=== PATIENT | male | born 1975 | race Hispanic/Latino ===

== ENCOUNTER 2018-04-21 08:14 | Inpatient (IN) | payer OTHER ==
[2018-04-21 09:37] LABS: Absolute Monocytes 0.3 K/uL (0.1-1.3); Absolute Neutrophil 8.7 K/uL (1.8-8.0); Basophils % 0.2 % (0-1.3); Eosinophils % 0.7 % (0-4.4); Hematocrit 44.8 % (39.6-49.0); Lymphocytes % 10.1 % (15.3-44.8); MPV 11.3 fL (7.6-11.3); RBC Red Blood Cell Count 5.38 M/uL (4.33-5.43)
[2018-04-21 10:00] LABS: ALT/SGPT 36 U/L (12-78); AST/SGOT 20 U/L (15-37); Albumin 4.4 g/dL (3.4-5.0); Alkaline Phosphatase 97 U/L (45-117); BUN Blood Urea Nitrogen 16 mg/dL (7-18); Bicarbonate 24 mmol/L (21-32); Bilirubin Direct 0.1 mg/dL (0-0.2); Bilirubin Total 0.9 mg/dL (0.2-1.0); Glucose Level 268 mg/dL (74-106); Lipase 1640 U/L (73-393); Potassium 3.8 mmol/L (3.5-5.1); Sodium Level 138 mmol/L (136-145)
[2018-04-21 10:16] LABS: Platelet Estimate ADEQ
[2018-04-21 10:17] LABS: Blood Morphology Comment NOT SEEN (NOT SEEN)
--- NOTE | 2018-04-21 10:28 | RAD REPORT ---
EXAM DESCRIPTION: CTAbdomen Pelvis W Contrast - 04/21/2018 10:12 am CLINICAL HISTORY: Abdominal pain. abdominal pain, iv only COMPARISON: No comparisons TECHNIQUE: Biphasic CT imaging of the abdomen and pelvis was performed with 100 ml non-ionic IV cont rast. All CT scans are performed using dose optimization technique as appropriate and may include automated exposure control or mA/KV adjustment according to patient size. FINDINGS: The lung bases are clear. Diffuse fatty liver is seen. Mild peripancreatic fluid is present likely representing pancreatitis. T he spleen is mildly enlarged in size. Adrenal glands and right kidney normal. Left kidney demonstrate s a 14 mm exophytic cyst, benign appearance. No bowel obstruction, free air, free fluid or abscess. Sigmoid diverticulosis without diverticulitis. The appendix is normal. No evidence of significant lymphadenopathy. No suspicious bony findings. IMPRESSION: Mild peripancreatic fluid is noted likely representing acute pancreatitis. Correlation w ith amylase and lipase levels is suggested. Diffuse fatty liver.
[2018-04-21 10:42] LABS: Urine Blood NEGATIVE (NEG); Urine Glucose 2+ (NEG); Urine Protein 1+ (NEG)
[2018-04-21] MEDS ORDERED: ONDANSETRON 4 MG/2 ML VIAL ONE (10:54)
[2018-04-21] MEDS ORDERED: MORPHINE 4 MG/ML SYR ONE ×2 (10:54→12:24)
[2018-04-21] MEDS ORDERED: NA CHLORIDE 0.9% 1,000 ML ONE (11:43)
--- NOTE | 2018-04-21 11:50 | RAD REPORT ---
EXAM DESCRIPTION: RAD - Chest Single View - 04/21/2018 11:42 am CLINICAL HISTORY: CHEST PAIN Chest pain. COMPARISON: No comparisons FINDINGS: Portable technique limits examination quality. The lungs are underinflated resulting in vascular crowding. The heart is normal in size. No displaced fractures. IMPRESSION: Underinflated lungs.
--- NOTE | 2018-04-21 11:54 | RAD REPORT ---
EXAM DESCRIPTION: US - Abdomen Exam Limited - 04/21/2018 11:47 am CLINICAL HISTORY: abdominal pain COMPARISON: No comparisons FINDINGS: The gallbladder demonstrates no gallstones. No pericholecystic fluid or gallbladder wall t hickening. The common bile duct is normal measuring 5 mm. The liver demonstrates no findings of intrahepatic biliary dilatation. IMPRESSION: Unremarkable examination.
--- NOTE | 2018-04-21 12:09 | ER ---
Nurse's Notes [facility] Name: Saroj Siddiqi Age: 43 yrs Sex: Male : 1975 Arrival Date: 04/21/2018 Time: 08:17 Bed 18 Private MD: Diagnosis: Acute pancreatitis Presentation: 04/21 08:29 Presenting complaint: Patient states: upper abd pain since yesterday, denies vomiting iw or diarrhea. Transition of care: patient was not received from another setting of care. Onset of symptoms was April 20, 2018. Risk Assessment: Do you want to hurt yourself or someone else? Patient reports no desire to harm self or others. Initial Sepsis Screen: Does the patient meet any 2 criteria? No. Patient's initial sepsis screen is negative. Does the patient have a suspected source of infection? No. Patient's initial sepsis screen is negative. Care prior to arrival: None. 08:29 Method Of Arrival: Ambulatory iw 08:29 Acuity: ELIZABETH 3 iw Historical: - Allergies: 08:33 No Known Allergies; iw - Home Meds: 08:33 pioglitazone 30 mg oral tab 1 tab once daily [Active]; simvastatin 80 mg Oral tab daily iw [Active]; amlodipine 5 mg tab 1 tab once daily [Active]; - PMHx: 08:33 Hypertension; Hyperlipidemia; iw - PSHx: 08:33 None; iw - Immunization history:: Adult Immunizations not up to date. - Social history:: Smoking status: Patient uses tobacco products, denies chronic smoking, but will smoke occasionally. - Ebola Screening: : Patient negative for fever greater than or equal to 101.5 degrees Fahrenheit, and additional compatible Ebola Virus Disease symptoms Patient denies exposure to infectious person Patient denies travel to an Ebola-affected area in the 21 days before illness onset No symptoms or risks identified at this time. Screenin:41 Abuse screen: Denies threats or abuse. Denies injuries from another. Nutritional iw screening: No deficits noted. Tuberculosis screening: No symptoms or risk factors identified. Fall Risk IV access (20 points). Assessment: 08:54 General: Appears in no apparent distress. uncomfortable, Behavior is calm, cooperative. jl7 Pain: Complains of pain in epigastric area Pain radiates to right upper quadrant and left upper quadrant Pain currently is 10 out of 10 on a pain scale. Is continuous. Neuro: Level of Consciousness is awake, alert, obeys commands, Oriented to person, place, time, situation. Cardiovascular: Patient's skin is warm and dry. Respiratory: Airway is patent Respiratory effort is even, unlabored, Respiratory pattern is regular, symmetrical. GI: Bowel sounds present X 4 quads. Abd is soft Abdomen is tender to palpation in epigastric area. : No signs and/or symptoms were reported regarding the genitourinary system. EENT: No signs and/or symptoms were reported regarding the EENT system. Derm: Skin is pink, warm \T\ dry. Musculoskeletal: No signs and/or symptoms reported regarding the musculoskeletal system. 10:00 Reassessment: Patient appears in no apparent distress at this time. Patient and/or jl7 family updated on plan of care and expected duration. Pain level reassessed. Patient is alert, oriented x 3, equal unlabored respirations, skin warm/dry/pink. 11:00 Reassessment: Patient appears in no apparent distress at this time. Patient and/or jl7 family updated on plan of care and expected duration. Pain level reassessed. Patient is alert, oriented x 3, equal unlabored respirations, skin warm/dry/pink. 11:43 Reassessment: Aidan at bedside to update pt on POC, pt will be admitted to hospital, iw diagnosis is pancreatitis, pt states he had a recent ETOH binge over the weekend, denies daily drinking, pt requesting more pain medicine and something to drink, pt is to be NPO at this time. 13:00 Reassessment: Patient and/or family updated on plan of care and expected duration. Pain jl7 level reassessed. pt laying in bed with eyes closed, respirations even and unlabored, no signs of distress noted at this time. 14:00 Reassessment: Patient appears in no apparent distress at this time. Patient and/or jl7 family updated on plan of care and expected duration. Pain level reassessed. Patient is alert, oriented x 3, equal unlabored respirations, skin warm/dry/pink. 15:00 Reassessment: Patient and/or family updated on plan of care and expected duration. Pain jl7 level reassessed. Patient is alert, oriented x 3, equal unlabored respirations, skin warm/dry/pink. Vital Signs: 08:33 BP 138 / 104; Pulse 96; Resp 16 S; Temp 98.3; Pulse Ox 99% on R/A; Weight 92.53 kg; iw Height 5 ft. 7 in. (170.18 cm); Pain 10/10; 10:45 BP 157 / 108; Pulse 99; Resp 16 S; Pulse Ox 100% on R/A; jl7 12:00 BP 131 / 96; Pulse 93; Resp 16 S; Pulse Ox 98% on R/A; jl7 14:00 BP 136 / 97; Pulse 96; Resp 16 S; Pulse Ox 97% on R/A; jl7 08:33 Body Mass Index 31.95 (92.53 kg, 170.18 cm) iw ED Course: 08:17 Patient arrived in ED. rg4 08:31 Aidan Bailey PA is PHCP. jmm 08:31 Julián Jeronimo MD is Attending Physician. jmm 08:32 Triage completed. iw 08:33 Arm band placed on. iw 08:36 Adal Amaral, PARAG is Primary Nurse. jl7 08:45 Patient has correct armband on for positive identification. Placed in gown. Bed in low jl7 position. Call light in reach. Side rails up X 1. 08:45 Pulse ox on. NIBP on. Warm blanket given. jl7 09:03 Initial lab(s) drawn, by me, sent to lab. Inserted saline lock: 22 gauge in right jb1 antecubital area, using aseptic technique. Blood collected. 09:13 Urine collected: clean catch specimen, cloudy, saad colored. jb1 10:12 CT completed. Patient tolerated procedure well. Patient moved to CT via wheelchair. Patient moved back from CT. 10:15 CT Abd/Pelvis - W/Contrast In Process Unspecified. EDMS 11:40 Inserted saline lock: 20 gauge in left antecubital area, using aseptic technique. Blood iw collected. 11:41 X-ray completed. Portable x-ray completed in exam room. Patient tolerated procedure sw well. 11:41 First set of blood cultures drawn. iw 11:43 Chest Single View XRAY In Process Unspecified. EDMS 11:48 US Abdomen Limited In Process Unspecified. EDMS 12:07 Ángel Lowe DO is Hospitalizing Provider. jmm 15:28 No provider procedures requiring assistance completed. Patient admitted, IV remains in jl7 place. intact, No redness/swelling at site. Administered Medications: 10:45 Drug: Zofran 4 mg Route: IVP; Site: right antecubital; jl7 11:00 Follow up: Response: No adverse reaction jl7 10:47 Drug: morphine 4 mg Route: IVP; Site: right antecubital; jl7 11:00 Follow up: Response: No adverse reaction; Pain is decreased jl7 12:15 Drug: NS 0.9% 1000 ml Route: IV; Rate: 1 bolus; Site: right antecubital; jl7 13:15 Follow up: IV Status: Completed infusion jl7 12:17 Drug: morphine 4 mg Route: IVP; Site: right antecubital; jl7 12:30 Follow up: Response: No adverse reaction; Pain is decreased [facility] Outcome: 12:07 Decision to Hospitalize by Provider. johanna 15:28 Admitted to ICU accompanied by nurse, accompanied by tech, family with patient, via [facility] stretcher, room 1, on monitor, with chart, Report called to PARAG Vasquez 15:28 Condition: stable 15:28 Discharge instructions given to patient, family, Instructed on the need for admit, Demonstrated understanding of instructions. 15:30 Patient left the ED. [facility] Signatures: Dispatcher [employer] EDMS Marc Jaeger1 Aidan Bailey PA PA jmm Jones, Susan sj Williams, Irene, RN Gianna Coles Rubi rg4 Leal, Jahala, RN RN jl7
--- NOTE | 2018-04-21 12:09 | EDPHYS ---
Physician Documentation [facility] Name: Saroj Siddiqi Age: 43 yrs Sex: Male : 1975 Arrival Date: 04/21/2018 Time: 08:17 Bed 18 Private MD: ED Physician Julián Jeronimo HPI: 04/21 08:42 This 43 yrs old Male presents to ER via Ambulatory with complaints of jmm Abdominal Pain. 08:42 The patient presents with abdominal pain in the epigastric area. Onset: The jmm symptoms/episode began/occurred gradually, 3 day(s) ago. The symptoms radiate to Associated signs and symptoms: Pertinent positives: nausea. This is a 43 year old male with a history of hlp, htn that presents to the ED with complaints of abdominal pain beginning approx 3 days ago. Patient states he drank heavily this past Thursday. Patient denies chronic alcohol use. . Historical: - Allergies: 08:33 No Known Allergies; iw - Home Meds: 08:33 pioglitazone 30 mg oral tab 1 tab once daily [Active]; simvastatin 80 mg Oral tab daily iw [Active]; amlodipine 5 mg tab 1 tab once daily [Active]; - PMHx: 08:33 Hypertension; Hyperlipidemia; iw - PSHx: 08:33 None; iw - Immunization history:: Adult Immunizations not up to date. - Social history:: Smoking status: Patient uses tobacco products, denies chronic smoking, but will smoke occasionally. - Ebola Screening: : Patient negative for fever greater than or equal to 101.5 degrees Fahrenheit, and additional compatible Ebola Virus Disease symptoms Patient denies exposure to infectious person Patient denies travel to an Ebola-affected area in the 21 days before illness onset No symptoms or risks identified at this time. ROS: 08:42 Constitutional: Negative for fever, chills, and weight loss, Cardiovascular: Negative jmm for chest pain, palpitations, and edema, Respiratory: Negative for shortness of breath, cough, wheezing, and pleuritic chest pain. 08:42 Abdomen/GI: Positive for abdominal pain, nausea. 08:42 Back: Positive for radiated pain. 08:42 All other systems are negative. Exam: 08:42 Constitutional: This is a well developed, well nourished patient who is awake, alert, jmm and in no acute distress. Head/Face: atraumatic. Eyes: EOMI, no conjunctival erythema appreciated ENT: Moist Mucus Membranes Neck: Trachea midline, Supple Chest/axilla: Normal chest wall appearance and motion. Cardiovascular: Regular rate and rhythm. No edema appreciated Respiratory: Normal respirations, no respiratory distress appreciated 08:42 Abdomen/GI: Inspection: abdomen appears normal, Bowel sounds: normal, Palpation: moderate abdominal tenderness, in the epigastric area and left upper quadrant. 08:42 Back: ROM is normal. 08:42 Musculoskeletal/extremity: ROM: intact in all extremities. 08:42 Skin: Appearance: Color: normal in color. 08:42 Neuro: Orientation: is normal, Mentation: is normal, Memory: is normal. 08:42 Psych: Behavior/mood is pleasant, cooperative. Vital Signs: 08:33 BP 138 / 104; Pulse 96; Resp 16 S; Temp 98.3; Pulse Ox 99% on R/A; Weight 92.53 kg; iw Height 5 ft. 7 in. (170.18 cm); Pain 10/10; 10:45 BP 157 / 108; Pulse 99; Resp 16 S; Pulse Ox 100% on R/A; jl7 12:00 BP 131 / 96; Pulse 93; Resp 16 S; Pulse Ox 98% on R/A; jl7 14:00 BP 136 / 97; Pulse 96; Resp 16 S; Pulse Ox 97% on R/A; jl7 08:33 Body Mass Index 31.95 (92.53 kg, 170.18 cm) iw MDM: 08:42 Patient medically screened. [facility] 12:06 Data reviewed: vital signs, nurses notes. Counseling: I had a detailed discussion with [facility] the patient and/or guardian regarding: the historical points, exam findings, and any diagnostic results supporting the discharge/admit diagnosis, lab results, radiology results, the need for further work-up and treatment in the hospital. ED course: I discussed the patient with Dr. Lowe whom accepted admission. 04/21 08:33 Order name: Basic Metabolic Panel; Complete Time: 10:41 [facility] 04/21 08:33 Order name: CBC with Diff; Complete Time: 10:41 [facility] 04/21 08:33 Order name: Creatinine for Radiology; Complete Time: 10:41 [facility] 04/21 08:33 Order name: Hepatic Function; Complete Time: 10:41 [facility] 04/21 08:33 Order name: Lipase; Complete Time: 10:41 [facility] 04/21 09:10 Order name: Urine Dipstick--Ancillary (enter results) 04/21 08:43 Order name: CT Abd/Pelvis - W/Contrast; Complete Time: 10:41 [facility] 04/21 10:17 Order name: Manual Differential; Complete Time: 10:41 [facility] 04/21 10:53 Order name: US Abdomen Limited; Complete Time: 11:58 [facility] 04/21 11:15 Order name: Procalcitonin; Complete Time: 13:07 [facility] 04/21 11:15 Order name: Lactate; Complete Time: 13:07 [facility] 04/21 11:15 Order name: Blood Culture Adult (2) [facility] 04/21 11:22 Order name: Triglycerides Level; Complete Time: 13:07 [facility] 04/21 12:47 Order name: LDL, Direct; Complete Time: 13:07 [facility] 04/21 08:33 Order name: IV Saline Lock; Complete Time: 08:53 [facility] 04/21 08:33 Order name: Labs collected and sent; Complete Time: 08:53 [facility] 04/21 08:33 Order name: Urine Dipstick-Ancillary (obtain specimen); Complete Time: 09:14 [facility] 04/21 11:11 Order name: Chest Single View XRAY; Complete Time: 11:58 [facility] Administered Medications: 10:45 Drug: Zofran 4 mg Route: IVP; Site: right antecubital; jl7 11:00 Follow up: Response: No adverse reaction jl7 10:47 Drug: morphine 4 mg Route: IVP; Site: right antecubital; jl7 11:00 Follow up: Response: No adverse reaction; Pain is decreased jl7 12:15 Drug: NS 0.9% 1000 ml Route: IV; Rate: 1 bolus; Site: right antecubital; jl7 13:15 Follow up: IV Status: Completed infusion jl7 12:17 Drug: morphine 4 mg Route: IVP; Site: right antecubital; jl7 12:30 Follow up: Response: No adverse reaction; Pain is decreased jl7 Disposition: 18:51 Co-signature as Attending Physician, Julián Jeronimo MD Available for consultation at ps1 all times. . Disposition: 04/21/18 12:07 Hospitalization ordered by Ángel Lowe for Observation. Preliminary diagnosis is Acute pancreatitis. - Bed requested for Intensive Care Unit. - Status is Observation. jl7 - Condition is Stable. - Problem is new. - Symptoms are unchanged. UTI on Admission? No Signatures: Dispatcher [employer] EDMS Ly Good bd Aidan Bailey PA PA jmm Williams, Irene, RN RN iw Adal Amaral RN RN jl7 Julián Jeronimo MD MD ps1 Corrections: (The following items were deleted from the chart) 13:56 12:07 Hospitalization Ordered by Ángel Lowe DO for Observation. Preliminary bd diagnosis is Acute pancreatitis. Bed requested for Telemetry/MedSurg (observation). Status is Observation. Condition is Stable. Problem is new. Symptoms are unchanged. UTI on Admission? No. johanna 15:30 13:56 04/21/2018 12:07 Hospitalization Ordered by Ángel Lowe DO for Observation. jl7 Preliminary diagnosis is Acute pancreatitis. Bed requested for Intensive Care Unit. Status is Observation. Condition is Stable. Problem is new. Symptoms are unchanged. UTI on Admission? No. bd
[2018-04-21 12:56] LABS: LDL, Direct 80 mg/dL (100-129)
--- NOTE | 2018-04-21 14:19 | P.HP ---
Certification for Inpatient Patient admitted to: Inpatient With expected LOS: >2 Midnights Patient will require the following post-hospital care: None Practitioner: I am a practitioner with admitting privileges, knowledge of patient current condition, hospital course, and medical plan of care. Services: Services provided to patient in accordance with Admission requirements found in Title 42 Section 412.3 of the Code of Federal Regulations Patient History Date of Service: 04/21/18 Primary Care Provider: ALYSON Murphy Reason for admission: Abdominal pain History of Present Illness: 43-year-old male presented to the emergency room with abdominal pain. Patient reported epigastric abdominal pain since yesterday. He denied any significant nausea or vomiting. No diarrhea noted. Patient was not able to sleep last night due to pain. He was able to eat but the pain persisted. He denied any fever, chills. Pain was 10/10. Some radiation of pain is noted. Patient came to the ER for further evaluation. In the ER patient evaluated. Lipase elevated at 1600. Triglyceride level also elevated above 2400. CT scan revealed pancreatitis and fatty liver. white count 10.2, hemoglobin 15. Blood sugar 268. Pro calcitonin and lactic acid within normal range. Chest x-ray unremarkable. Abdominal ultrasound shows no biliary obstruction. Patient admitted for treatment. When I saw the patient the ER, he did not appear septic. Pain mi a controlled with medication. Patient with history of hypertension, diabetes and hyperlipidemia. Patient takes Actos, Zocor and amlodipine. Home medications list reviewed: Yes - Past Medical/Surgical History Diabetic: Yes -: Diabetes mellitus type 2 -: Hypertension -: Hyperlipidemia -: Obesity -: Tobacco abuse -: Alcohol use -: Fatty liver Past Surgical History: Patient denies surgical history Psychosocial/ Personal History: Patient is . He has 3 children. He works as a fabricator. - Family History Mother -: Diabetes - Social History Smoking Status: Light Tobacco smoker (1-9 cigarettes/day) Counseled patient to stop smoking for: less than 10 minutes Smoking therapy provided: Yes Patient receptive to therapy: Yes Alcohol use: Yes CD- Drugs: No Caffeine use: Yes Place of Residence: Home Review of Systems General: As per HPI Eyes: Unremarkable ENT: Unremarkable Respiratory: Unremarkable Cardiovascular: Unremarkable Gastrointestinal: Abdominal Pain, As per HPI Genitourinary: Unremarkable Musculoskeletal: Unremarkable Integumentary: Unremarkable Neurological: Unremarkable Lymphatics: Unremarkable Physical Examination - Physical Exam General: Alert, In no apparent distress, Oriented x3, Cooperative HEENT: Atraumatic, Normocephalic, PERRLA, Other (Dry mucous membranes) Neck: Supple, No Thyromegaly Respiratory: Clear to auscultation bilaterally, Normal air movement Cardiovascular: Normal pulses, Regular rate/rhythm Gastrointestinal: Hypoactive, Non-distended, No masses, No rebound, No guarding , Tenderness (Epigastric tenderness noted) Musculoskeletal: No contractures, No erythema, No tenderness, No warmth Integumentary: No tenderness/swelling, No erythema, No warmth, No cyanosis Neurological: Normal speech, Normal strength at 5/5 x4 extr, Normal tone, Normal affect - Studies Laboratory Data (last 24 hrs) 04/21/18 11:30: Triglycerides 2461 H, LDL Cholesterol Direct 80 L 04/21/18 09:25: Creatinine 0.68 04/21/18 08:50: WBC 10.2, Hgb 15.7, Hct 44.8, Plt Count 124 L 04/21/18 08:50: Sodium 138, Potassium 3.8, BUN 16, Creatinine 0.69, Glucose 268 H, Total Bilirubin 0.9, AST 20, ALT 36, Alkaline Phosphatase 97, Lipase 1640 H Assessment and Plan - Plan Impression: Epigastric abdominal pain secondary to acute pancreatitis secondary to hypertriglyceridemia Diabetes mellitus type 2 Hypertension Tobacco abuse Alcohol use Fatty liver Obesity Plan: Epigastric abdominal pain secondary to acute pancreatitis secondary to hypertriglyceridemia: Patient will be admitted to ICU. Will continue with IV fluids. Will keep the patient NPO. Insulin drip to be started to help reduce triglycerides. Once triglycerides have significantly improved and without any abdominal pain, then will advance diet. Will continue to monitor the patient closely. Fluids to be adjusted per blood sugar. Diabetes mellitus type 2: Will check A1c. Continue insulin drip. Will adjust IV fluids per blood sugar. If blood sugar less than 200 will change to D5 normal saline. If blood sugar above 200, Will change to normal saline. Hypertension: Will provide IV medication as needed Tobacco abuse: Tobacco cessation addressed in detail. Patient may require nicotine patch. Alcohol use: Alcohol cessation addressed in detail. Fatty liver: CT scan revealed fatty liver. Will provide education. Obesity: Will calculate BMI. Will address lifestyle modification education. Discharge Plan: Home Plan to discharge in: Greater than 2 days - Advance Directives Does patient have a Living Will: No Does patient have a Durable POA for Healthcare: No - Code Status/Comfort Care Code Status Assessed: Yes (Patient full code.) Time Spent Managing Pts Care (In Minutes): 55
[2018-04-21] MEDS ORDERED: ACETAMINOPHEN 500 MG TAB PO PRN (15:07)
[2018-04-21] MEDS ORDERED: GLUCAGON 1 MG/VIAL IM PRN (15:07)
[2018-04-21] MEDS ORDERED: MORPHINE 2 MG/ML SYR IV PRN (15:07)
[2018-04-21] MEDS ORDERED: D50W 25 GM/50 ML SYRINGE IV PRN (15:07)
[2018-04-21] MEDS ORDERED: HYDRALAZINE HCL 20 MG/ML VIAL IV PRN (15:07)
[2018-04-21] MEDS ORDERED: ACETAMINOPHEN 650MG/RECT SUPP PR PRN (15:07)
[2018-04-21] MEDS ORDERED: ONDANSETRON 4 MG/2 ML VIAL IV PRN (15:07)
[2018-04-21] MEDS: ENOXAPARIN 40 MG/0.4 ML SQ SCH (15:39)
[2018-04-21] MEDS: NA CHLORIDE 0.9% 1,000 ML IV SCH ×2 (15:40→23:07)
[2018-04-21] MEDS: INSULIN -REGULAR HUMAN 100 UNIT in NA CHLORIDE 0.9% 100 ML IV SCH (15:51)
[2018-04-21] MEDS ORDERED: HYDROMORPHONE HCL 0.5 MG/0.5 ML INJ IV PRN (16:02)
[2018-04-21] MEDS ORDERED: HYDROMORPHONE HCL 1 MG/ML INJ IV PRN (16:03)
[2018-04-21 16:14] LABS: Thyroid Stimulating Hormone 0.794 uIU/mL (0.360-3.740)
[2018-04-21] MEDS ORDERED: PNEUMOCOCCAL VACCINE 0.5 ML IMVAC ONE (17:00)
[2018-04-21] MEDS ORDERED: INFLUENZA VACCINE (for 3y+) 0.5 ML DOSE IMVAC ONE (17:00)
[2018-04-21] MEDS: D5 0.9 NS 1,000 ML IV SCH (18:24)
[2018-04-21] MEDS: FAMOTIDINE 20 MG/2 ML VIAL IV SCH (21:13)
[2018-04-22] MEDS: D5 0.9 NS 1,000 ML IV SCH ×3 (03:30→19:00)
[2018-04-22 05:17] LABS: Absolute Monocytes 0.4 K/uL (0.1-1.3); Absolute Neutrophil 7.1 K/uL (1.8-8.0); Basophils % 0.5 % (0-1.3); Eosinophils % 0.9 % (0-4.4); Hematocrit 39.2 % (39.6-49.0); Lymphocytes % 11.9 % (15.3-44.8); MPV 9.5 fL (7.6-11.3); RBC Red Blood Cell Count 4.72 M/uL (4.33-5.43)
[2018-04-22 05:38] LABS: HDL Cholesterol 30 mg/dL (40-60); LDL Cholesterol, Calculated ND (<130)
[2018-04-22 05:50] LABS: LDL, Direct 53 mg/dL (100-129)
[2018-04-22] MEDS: NA CHLORIDE 0.9% 1,000 ML IV SCH ×3 (07:07→23:07)
[2018-04-22 07:23] LABS: ALT/SGPT 28 U/L (12-78); AST/SGOT 14 U/L (15-37); Albumin 3.4 g/dL (3.4-5.0); Alkaline Phosphatase 72 U/L (45-117); BUN Blood Urea Nitrogen 14 mg/dL (7-18); Bicarbonate 26 mmol/L (21-32); Bilirubin Total 0.8 mg/dL (0.2-1.0); Glucose Level 162 mg/dL (74-106); Potassium 3.5 mmol/L (3.5-5.1); Protein, Total 6.9 g/dL (6.4-8.2)
[2018-04-22 07:25] LABS: Sodium Level 139 mmol/L (136-145)
[2018-04-22] MEDS ORDERED: KCL 20 MEQ/100 mL IVPB 20 MEQ/100 ML BAG IV SCH ×2 (09:00)
[2018-04-22] MEDS: ENOXAPARIN 40 MG/0.4 ML SQ SCH (09:12)
[2018-04-22] MEDS: FAMOTIDINE 20 MG/2 ML VIAL IV SCH ×2 (09:12→20:48)
--- NOTE | 2018-04-22 11:31 | P.PN ---
Subjective Date of Service: 04/22/18 Primary Care Provider: ALYSON Murphy Chief Complaint: Abdominal pain Subjective: Other (Patient improved. Epigastric pain significantly improved. No significant nausea or vomiting.) Physical Examination - Vital Signs Temperature: 98.1 F Blood Pressure: 120/74 Pulse: 97 Respirations: 20 Pulse Ox (%): 97 - Physical Exam General: Alert, In no apparent distress, Oriented x3, Cooperative HEENT: Atraumatic Neck: Supple Respiratory: Clear to auscultation bilaterally, Normal air movement Cardiovascular: Normal pulses, Regular rate/rhythm Gastrointestinal: Normal bowel sounds, Soft and benign, Non-distended, No masses , No rebound, No guarding, Tenderness (Less pain to the epigastric region) Musculoskeletal: No erythema, No tenderness, No warmth Integumentary: No tenderness/swelling, No erythema, No warmth, No cyanosis Neurological: Normal speech, Normal strength at 5/5 x4 extr, Normal tone, Normal affect - Studies Laboratory Data (last 24 hrs) 04/21/18 11:30: Triglycerides 2461 H, LDL Cholesterol Direct 80 L Medications List Reviewed: Yes Assessment & Plan Discharge Plan: Home Plan to discharge in: 72 Hours Physician Review Additional Text: Impression: Epigastric abdominal pain secondary to acute pancreatitis secondary to hypertriglyceridemia Diabetes mellitus type 2 Hypertension Tobacco abuse Alcohol use Fatty liver Obesity, BMI 31 Plan: Epigastric abdominal pain secondary to acute pancreatitis secondary to hypertriglyceridemia: Patient continues to improve. Patient remains on insulin drip and IV fluids. Triglycerides now all down to 1062 from 2461. Will continue monitor triglyceride level. Once below 500 then can transition to oral medication. Pain improved. Will recheck triglyceride level again later today and tomorrow. Anticipate improvement over the next 24 hr. Diabetes mellitus type 2, uncontrolled: A1c 10.5. Patient will likely require basal insulin at discharge. Blood sugar needs to be better controlled as an outpatient. Hypertension: Will provide IV medication as needed Tobacco abuse: Will continue to address Tobacco cessation. Patient may require nicotine patch. Alcohol use: Will continue to address Alcohol cessation. Fatty liver: CT scan revealed fatty liver. Will provide education. Obesity, BMI 31: Will address lifestyle modification education. Time Spent Managing Pts Care (In Minutes): 55
[2018-04-22] MEDS: INSULIN -REGULAR HUMAN 100 UNIT in NA CHLORIDE 0.9% 100 ML IV SCH (12:17)
[2018-04-22 13:35] LABS: BUN Blood Urea Nitrogen 14 mg/dL (7-18); Bicarbonate 22 mmol/L (21-32); Glucose Level 219 mg/dL (74-106); Potassium 3.5 mmol/L (3.5-5.1); Sodium Level 138 mmol/L (136-145)
[2018-04-22 13:50] LABS: LDL, Direct 72 mg/dL (100-129)
[2018-04-22 18:38] LABS: LDL, Direct 80 mg/dL (100-129)
[2018-04-23] MEDS: NA CHLORIDE 0.9% 1,000 ML IV SCH ×2 (01:20→07:07)
[2018-04-23 05:15] LABS: Absolute Monocytes 0.5 K/uL (0.1-1.3); Absolute Neutrophil 5.1 K/uL (1.8-8.0); Basophils % 0.2 % (0-1.3); Hematocrit 38.7 % (39.6-49.0); MPV 9.2 fL (7.6-11.3); Monocytes % 7.1 % (3.3-12.3); RBC Red Blood Cell Count 4.63 M/uL (4.33-5.43)
[2018-04-23 05:31] LABS: ALT/SGPT 26 U/L (12-78); AST/SGOT 12 U/L (15-37); Albumin 2.8 g/dL (3.4-5.0); Alkaline Phosphatase 77 U/L (45-117); BUN Blood Urea Nitrogen 9 mg/dL (7-18); Bicarbonate 23 mmol/L (21-32); Bilirubin Total 1.2 mg/dL (0.2-1.0); Glucose Level 156 mg/dL (74-106); HDL Cholesterol 29 mg/dL (40-60); LDL Cholesterol, Calculated ND (<130); Magnesium 1.9 mg/dL (1.8-2.4); Protein, Total 6.5 g/dL (6.4-8.2); Sodium Level 137 mmol/L (136-145)
[2018-04-23 05:48] LABS: LDL, Direct 90 mg/dL (100-129)
[2018-04-23] MEDS ORDERED: KCL 20 MEQ/100 mL IVPB 20 MEQ/100 ML BAG IV SCH (07:00)
[2018-04-23] MEDS ORDERED: POTASSIUM CL SA 10 MEQ TAB PO ONE ×2 (07:03→20:00)
[2018-04-23] MEDS ORDERED: TRAMADOL HCL 50 MG TAB PO PRN (08:27)
[2018-04-23] MEDS ORDERED: GEMFIBROZIL 600 MG TAB PO SCH (09:00)
[2018-04-23] MEDS ORDERED: DOCOSAHEXANOIC AC/EPA 1000 MG PO SCH (09:00)
[2018-04-23] MEDS ORDERED: FAMOTIDINE 20 MG TAB PO SCH (09:00)
[2018-04-23] MEDS: ENOXAPARIN 40 MG/0.4 ML SQ SCH (09:54)
--- NOTE | 2018-04-23 15:57 | P.PN ---
Subjective Date of Service: 04/23/18 Primary Care Provider: ALYSON Murphy Chief Complaint: Abdominal pain Subjective: Improving Physical Examination - Vital Signs Temperature: 99.0 F Blood Pressure: 142/91 Pulse: 99 Respirations: 16 Pulse Ox (%): 97 - Physical Exam General: Alert, In no apparent distress, Oriented x3, Cooperative HEENT: Atraumatic Neck: Supple Respiratory: Clear to auscultation bilaterally, Normal air movement Cardiovascular: Normal pulses, Regular rate/rhythm Gastrointestinal: Normal bowel sounds, Soft and benign, Non-distended, No masses , No rebound, No guarding, Tenderness (Minimal pain to the epigastric region) Musculoskeletal: No erythema, No tenderness, No warmth Integumentary: No tenderness/swelling, No erythema, No warmth, No cyanosis Neurological: Normal speech, Normal strength at 5/5 x4 extr, Normal tone, Normal affect - Studies Medications List Reviewed: Yes Assessment & Plan Discharge Plan: Home Plan to discharge in: 24 Hours Physician Review Additional Text: Impression: Epigastric abdominal pain secondary to acute pancreatitis secondary to hypertriglyceridemia Diabetes mellitus type 2 Hypertension Tobacco abuse Alcohol use Fatty liver Obesity, BMI 31 Plan: Epigastric abdominal pain secondary to acute pancreatitis secondary to hypertriglyceridemia: Patient continues to improve. Lopid and Fish oil started. Continue with IV fluids. Will advance diet as tolerated. Anticipate discharge in the next 24 hr. Diabetes mellitus type 2, uncontrolled: A1c 10.5. Will start basal insulin. Hypertension: Will start home medication Tobacco abuse: Will continue to address Tobacco cessation. Patient may require nicotine patch. Alcohol use: Will continue to address Alcohol cessation. Fatty liver: CT scan revealed fatty liver. Will provide education. Obesity, BMI 31: Will address lifestyle modification education. Time Spent Managing Pts Care (In Minutes): 55
--- NOTE | 2018-04-23 18:04 | P.DS ---
Admission Date: 04/21/18 Discharge Date: 04/23/18 Primary Care Provider: ALYSON Murphy Disposition: ROUTINE DISCHARGE Discharge Condition: GOOD Reason for Admission: Abdominal pain Consultations: None Procedures: CT scan: COMPARISON: No comparisons TECHNIQUE: Biphasic CT imaging of the abdomen and pelvis was performed with 100 ml non-ionic IV contrast. All CT scans are performed using dose optimization technique as appropriate and may include automated exposure control or mA/KV adjustment according to patient size. FINDINGS: The lung bases are clear. Diffuse fatty liver is seen. Mild peripancreatic fluid is present likely representing pancreatitis. The spleen is mildly enlarged in size. Adrenal glands and right kidney normal. Left kidney demonstrates a 14 mm exophytic cyst , benign appearance. No bowel obstruction, free air, free fluid or abscess. Sigmoid diverticulosis without diverticulitis. The appendix is normal. No evidence of significant lymphadenopathy. No suspicious bony findings. IMPRESSION: Mild peripancreatic fluid is noted likely representing acute pancreatitis. Correlation with amylase and lipase levels is suggested. Diffuse fatty liver. ABUS: COMPARISON: No comparisons FINDINGS: The gallbladder demonstrates no gallstones. No pericholecystic fluid or gallbladder wall thickening. The common bile duct is normal measuring 5 mm. The liver demonstrates no findings of intrahepatic biliary dilatation. IMPRESSION: Unremarkable examination. Medical Problem List: Epigastric abdominal pain secondary to acute pancreatitis secondary to hypertriglyceridemia Diabetes mellitus type 2 Hypertension Tobacco abuse Alcohol use Fatty liver Obesity, BMI 31 Brief History of Present Illness: 43-year-old male presented to the emergency room with abdominal pain. Patient reported epigastric abdominal pain since yesterday. He denied any significant nausea or vomiting. No diarrhea noted. Patient was not able to sleep last night due to pain. He was able to eat but the pain persisted. He denied any fever, chills. Pain was 10/10. Some radiation of pain is noted. Patient came to the ER for further evaluation. In the ER patient evaluated. Lipase elevated at 1600. Triglyceride level also elevated above 2400. CT scan revealed pancreatitis and fatty liver. white count 10.2, hemoglobin 15. Blood sugar 268. Pro calcitonin and lactic acid within normal range. Chest x-ray unremarkable. Abdominal ultrasound shows no biliary obstruction. Patient admitted for treatment. When I saw the patient the ER, he did not appear septic. Pain mi a controlled with medication. Patient with history of hypertension, diabetes and hyperlipidemia. Patient takes Actos, Zocor and amlodipine. Hospital Course: Patient presented with epigastric abdominal pain secondary to acute pancreatitis secondary to hypertriglyceridemia. Patient responded well to therapy which included IV insulin. Medication adjusted during his stay. Zocor discontinued. At discharge patient without any significant pain much improved. At discharge he will continue with Lopid 600 mg 1 pill twice daily and fish oil 1000 mg pills twice daily. Recommend to continue with a low-fat diet. Patient with type 2 diabetes. A1c 10.5. Medication adjusted. Patient will no longer take Actos. Indication includes metformin. At discharge patient will continue with metformin 1000 mg 1 pill twice daily. Recommend for blood sugar to be less than 140 fasting and less than 200 after meals. Further adjustment in medication will be required if still elevated. Patient plans to establish care with a local physician to help with this. He will continue with a diabetic low-fat diet. Patient with hypertension. Medications adjusted. Norvasc discontinued. New medication includes lisinopril. Patient will continue with lisinopril 10 mg daily. Recommend to maintain blood pressures less 150/80. Further adjustment can be done by his PCP. Patient with alcohol and tobacco abuse. Cessation education addressed in detail for both. Patient with fatty liver. Recommend lifestyle modification education. This can be monitored as an outpatient. Vital Signs/Physical Exam: Temp Pulse Resp BP Pulse Ox 99.4 F 101 H 16 118/79 97 04/23/18 16:00 04/23/18 16:00 04/23/18 16:00 04/23/18 16:00 04/23/18 16:00 General: Alert, In no apparent distress, Oriented x3, Cooperative HEENT: Atraumatic Neck: Supple Respiratory: Clear to auscultation bilaterally, Normal air movement Cardiovascular: Normal pulses, Regular rate/rhythm Gastrointestinal: Normal bowel sounds, Soft and benign, Non-distended, No tenderness, No masses, No rebound, No guarding Musculoskeletal: No erythema, No tenderness, No warmth Integumentary: No tenderness/swelling, No erythema, No warmth, No cyanosis Neurological: Normal speech, Normal strength at 5/5 x4 extr, Normal tone, Normal affect Laboratory Data at Discharge: WBC 6.8 K/uL (4.3-10.9) D 04/23/18 04:30 Hgb 13.4 g/dL (13.6-17.9) L 04/23/18 04:30 Hct 38.7 % (39.6-49.0) L 04/23/18 04:30 Plt Count 98 K/uL (152-406) L 04/23/18 04:30 Sodium 137 mmol/L (136-145) 04/23/18 04:30 Potassium 3.6 mmol/L (3.5-5.1) 04/23/18 15:50 BUN 9 mg/dL (7-18) 04/23/18 04:30 Creatinine 0.48 mg/dL (0.55-1.3) L 04/23/18 04:30 Glucose 156 mg/dL (74-106) H 04/23/18 04:30 Magnesium 1.9 mg/dL (1.8-2.4) 04/23/18 04:30 Total Bilirubin 1.2 mg/dL (0.2-1.0) H 04/23/18 04:30 AST 12 U/L (15-37) L 04/23/18 04:30 ALT 26 U/L (12-78) 04/23/18 04:30 Alkaline Phosphatase 77 U/L (45-117) 04/23/18 04:30 Triglycerides 435 mg/dL (<150) H 04/23/18 04:30 Cholesterol 225 mg/dL (<200) H 04/23/18 04:30 LDL Cholesterol Direct 90 mg/dL (100-129) L 04/23/18 04:30 HDL Cholesterol 29 mg/dL (40-60) L 04/23/18 04:30 Cholesterol/HDL Ratio 7.76 04/23/18 04:30 Lipase 319 U/L (73-393) 04/23/18 08:50 Home Medications: Docosahexanoic AC/Epa [Fish Oil 1,000 MG*] 2,000 mg PO BID #120 cap 04/23/18 Gemfibrozil [Lopid*] 600 mg PO BID #60 tab 04/23/18 Lisinopril [Prinivil*] 10 mg PO BEDTIME #30 tab 04/23/18 Metformin HCl 1,000 mg PO BID #60 tablet 04/23/18 New Medications: Docosahexanoic AC/Epa [Fish Oil 1,000 MG*] 2,000 mg PO BID #120 cap Gemfibrozil [Lopid*] 600 mg PO BID #60 tab Lisinopril [Prinivil*] 10 mg PO BEDTIME #30 tab Metformin HCl 1,000 mg PO BID #60 tablet Patient Discharge Instructions: 1. Patient patient will need to establish care with a PCP to follow up this hospitalization. 2. Patient presented with epigastric abdominal pain secondary to acute pancreatitis secondary to hypertriglyceridemia. Patient responded well to therapy which included IV insulin. Medication adjusted during his stay. Zocor discontinued. At discharge patient without any significant pain much improved. At discharge he will continue with Lopid 600 mg 1 pill twice daily and fish oil 1000 mg pills twice daily. Recommend to continue with a low-fat diet. 3. Patient with type 2 diabetes. A1c 10.5. Medication adjusted. Patient will no longer take Actos. Indication includes metformin. At discharge patient will continue with metformin 1000 mg 1 pill twice daily. Recommend for blood sugar to be less than 140 fasting and less than 200 after meals. Further adjustment in medication will be required if still elevated. Patient plans to establish care with a local physician to help with this. He will continue with a diabetic low- fat diet. 4. Patient with hypertension. Medications adjusted. Norvasc discontinued. New medication includes lisinopril. Patient will continue with lisinopril 10 mg daily. Recommend to maintain blood pressures less 150/80. Further adjustment can be done by his PCP. 5. Patient with alcohol and tobacco abuse. Cessation education addressed in detail for both. 6. Patient with fatty liver. Recommend lifestyle modification education. This can be monitored as an outpatient. Diet: ADA Activity: Ad joycelyn Time spent managing pt's care (in minutes): 55
[2018-04-23] MEDS ORDERED: LISINOPRIL 10 MG TAB PO SCH (21:00)
[2018-04-24] MEDS ORDERED: INSULIN GLARGINE 100 UNITS/ML SQ SCH (08:00)
== END 2018-04-23 20:26 | disposition home or self-care (01) | DRG 440 ==
LOC: ER 08:14 → ERHOLD 13:28 → 3RD-ICU 15:09 → 2ND 04-23 07:20
PROVIDERS: ADMIT Family Medicine; ATTEND Family Medicine
DX: K85.80 Other acute pancreatitis without necrosis or infection (principal); E78.1 Pure hyperglyceridemia; E11.9 Type 2 diabetes mellitus without complications; I10 Essential (primary) hypertension; F17.210 Nicotine dependence, cigarettes, uncomplicated; K76.0 Fatty (change of) liver, not elsewhere classified; E66.9 Obesity, unspecified; Z68.31 Body mass index [BMI] 31.0-31.9, adult; F10.10 Alcohol abuse, uncomplicated
CPT/HCPCS: 36415; 71045; 74177; 76705; 80048; 80053; 80061; 80076; 81003; 82962; 83036; 83605; 83690; 83735; 84132; 84145; 84439; 84443; 84478; 85025; 87040; 90670; 96361; 96374; 96375; 99285; G0008; G0009; J1170; J1650; J2270; J2405; J7030; Q2035; Q9967

== ENCOUNTER 2024-01-22 22:35 | Observation (INO) | payer OTHER, SELFPAY ==
[2024-01-22 23:29] LABS: Absolute Eosinophils 0.2 K/uL (0-0.5); Absolute Lymphocytes (CBC) 1.9 K/uL (0.7-4.9); Absolute Monocytes 0.4 K/uL (0.1-1.3); Absolute Neutrophil 4.2 K/uL (1.8-8.0); Basophils % 0.6 % (0-1.3); Hematocrit 47.1 % (39.6-49.0); Lymphocytes % 27.4 % (15.3-44.8); MCH 30.7 pg (27.0-35.0); MCHC 33.9 g/dL (32.0-36.0); MCV 90.5 fL (80-100); MPV 10.2 fL (7.6-11.3); Monocytes % 6.6 % (3.3-12.3); Neutrophils % 62.4 % (41.7-73.7); Nucleated Red Blood Cells % 0.1 % (0-0); Platelets 137 thou/uL (152-406); RBC Red Blood Cell Count 5.21 M/uL (4.33-5.43); Red Cell Distribution Width 13.6 % (12.1-15.2)
[2024-01-22 23:31] LABS: PT Prothrombin Time 11.1 SECONDS (9.4-12.5); PTT, Activated Partial Thromb 34.2 SECONDS (24.3-36.9); Protime INR 0.99
--- NOTE | 2024-01-23 00:26 | RAD REPORT ---
EXAM DESCRIPTION: CT HEAD ANGIOGRAPHY WITH IV CONTRAST 01/22/2024 11:36 PM [employer] OPERATOR CLINICAL HISTORY: 48 years, Male, Stroke alert. COMPARISON: CT Head 01/22/2024. PROCEDURE: Multiple transaxial tomograms of the upper neck through the brain were performed after administration of large bolus of IV contrast for complete opacification of the intracranial vessels. Subsequent 3-D multiplanar reformats, volume rendering technique and maximum intensity projection chetan ges were generated in independent workstation. An individualized dose optimization technique, Automated Exposure Control, was utilized for the perfo rmed procedure. CAROTID STENOSIS REFERENCE USING NASCET CRITERIA: % ICA stenosis = (1 - narrowest ICA diameter/diamet er of distal cervical ICA) x 100. Mild - <50% stenosis. Moderate - 50-69% stenosis. Severe - 70-94% stenosis. Near occlusion - 95-99% stenosis. Occluded - 100% stenosis. FINDINGS: Distal internal carotid arteries: There is no significant areas of stenosis and/or occlusion. Milagros l traveling into the carotid foramen. Intracranial circulation: Intracranial portions of the internal carotid arteries the cavernous sinus portions demonstrates the presence of minimal peripheral atheromatous plaque with no evidence for significant tendinosis and/or aneurysm. The anterior cerebral arteries, middle cerebral arteries and its branches demonstrate normal opacification with no evidence for significant stenosis aneurysm and/or occlusion. There is normal venous drainage with no evidence for sinus vein thrombosis. Vertebrobasilar system: The vertebrobasilar system and PIN CLEANER demonstrate to be normal with no evidence for aneurysm and/or occlusion. The brain parenchyma demonstrate normal aj-white matter differentiation with no evidence for mass e ffect and/or midline shift. There is no evidence for abnormal right normal enhancement. The skull base and intracranial structures demonstrate to be within normal limits. IMPRESSION: No evidence for significant stenosis and/or occlusion of the intracranial vasculature. Unremarkable CT scan of the brain with contrast. Electronically signed by: Marc Weber MD 01/23/2024 12:19 AM [employer] OPERATOR Due to temporary technical issues with the PACS/[employer] reporting system, reports are being tess d by the in-house radiologist without review as a courtesy to ensure prompt reporting the interpreting radiologist is fully responsible for the content of the report. Transcribed Date/Time: 01/23/2024 12:26 AM
--- NOTE | 2024-01-23 00:27 | RAD REPORT ---
Two PROCEDURE: Ct Stroke Brain Wo Cont CLINICAL HISTORY: STROKE ALERT TECHNIQUE: Contiguous axial CT images obtained through the brain without IV contrast. Coronal and sagittal refor matted images were provided. This exam was performed according to our departmental dose-optimization program, which includes autom ated exposure control, adjustment of the mA and/or kV according to patient size and/or use of iterative reconstruction technique. COMPARISON: None available for comparison FINDINGS: Brain: No focal mass effect. Ann-white matter differentiation is within normal limits. No hemorrhage . Ventricles: No ventriculomegaly or midline shift. Extra-axial spaces: No extra-axial collection or hemorrhage. Paranasal sinuses and mastoid air cells: Well-aerated Bones: Unremarkable Soft tissues: Unremarkable IMPRESSION: No acute intracranial or extra-axial abnormality. Electronically signed by: Byron Brandon MD 01/22/2024 11:18 PM [facility] Due to temporary technical issues with the PACS/[employer] reporting system, reports are being tess d by the in-house radiologist without review as a courtesy to ensure prompt reporting the interpreting radiologist is fully responsible for the content of the report. Transcribed Date/Time: 01/23/2024 12:27 AM
--- NOTE | 2024-01-23 00:27 | RAD REPORT ---
CLINICAL HISTORY: Stroke alert. COMPARISON: None. TECHNIQUE: CT NECK ANGIOGRAPHY WITH IV CONTRAST on 01/22/2024 10:48 PM TOURS CAPTAIN This exam was performed according to our departmental dose-optimization program, which includes autom ated exposure control, adjustment of the mA and/or kV according to patient size and/or use of iterative reconstruction technique. MIP reconstructions were generated. Stenoses are calculated by NASCET criteria. FINDINGS: The visualized aortic arch and origins of the great vessels unremarkable. The common carotid arteries are patent and symmetric bilaterally. No hemodynamically significant stenosis is observed at the common carotid bifurcations or origins of the internal carotid arteries bilaterally. Vertebral arteries are unremarkable without evidence of pseudoaneurysm, hemodynamically significant s tenosis, or dissection. IMPRESSION: Unremarkable CT angiogram of the neck for age without dissection or hemodynamically significant steno sis. CAROTID STENOSIS REFERENCE USING NASCET CRITERIA: % ICA stenosis = (1 - narrowest ICA diameter/diameter of distal cervical ICA) x 100. Mild - <50% stenosis. Moderate - 50-69% stenosis. Severe - 70-94% stenosis. Near occlusion - 95-99% stenosis. Occluded - 100% stenosis. Electronically signed by: Flo Puckett MD 01/22/2024 11:50 PM [facility] Due to temporary technical issues with the PACS/[employer] reporting system, reports are being tess d by the in-house radiologist without review as a courtesy to ensure prompt reporting the interpreting radiologist is fully responsible for the content of the report. Transcribed Date/Time: 01/23/2024 12:27 AM
[2024-01-23 00:28] LABS: ALT/SGPT 43 U/L (16-61); AST/SGOT 26 U/L (15-37); Albumin 3.7 g/dL (3.4-5.0); Alkaline Phosphatase 74 U/L (45-117); Anion Gap 13.7 mEq/L (5.0-15.0); BUN Blood Urea Nitrogen 18 mg/dL (7-18); Bicarbonate 21 mEq/L (21-32); Bilirubin Direct < 0.2 mg/dL (0-0.2); Bilirubin Indirect, Calculated 0.3 mg/dL (0.2-0.8); Bilirubin Total 0.5 mg/dL (0.2-1.0); Globulin 3.7 g/dL (2.3-3.5); Glomerular Filtration Rate 114 ml/min (=/>90); Glucose Level 166 mg/dL (74-106); Potassium 3.7 mEq/L (3.5-5.1); Protein, Total 7.4 g/dL (6.4-8.2); Sodium Level 135 mEq/L (136-145); Troponin High Sensitivity 3.3 pg/mL (<58.9)
[2024-01-23] MEDS ORDERED: ONDANSETRON 4 MG/2 ML VIAL IV PRN (01:03)
--- NOTE | 2024-01-23 01:03 | EDPHYS ---
Physician Documentation [facility] Name: Saroj Yoder Age: 48 yrs Sex: Male : 1975 Arrival Date: 01/22/2024 Time: 22:35 Bed 2 Private MD: ED Physician Kike Garcia HPI: 01/21 23:00 This 48 yrs old Male presents to ER via Unassigned with complaints of Facial sp3 Droop, Numbness Of Arm. 23:00 48-year-old male with a history of hyperlipidemia, diabetes now presents to the ED with sp3 left-sided lower facial droop since approximately noon today. Patient has also had paresthesias of the left upper extremity for the last 2 to 3 days. Today the droop was noticed by both patient and family and he did not get better on its own therefore they present to the ED now for evaluation. No changes in speech, memory or other motor weakness besides the left lower face. Review of systems negative for headache, neck pain, chest pain, shortness of breath, palpitations, abdominal pain, vomiting, diarrhea, rash, bleeding, syncope, near syncope, trauma, travel history, known sick contacts or any other signs or symptoms on ROS at this time.. Historical: - Allergies: 23:10 No Known Allergies; cp4 - PMHx: 23:10 Hyperlipidemia; Hypertension; cp4 - Immunization history:: Adult Immunizations up to date. - Infectious Disease History:: Denies. - Social history:: Smoking status: Patient denies any tobacco usage or history of. ROS: 23:01 Constitutional: Negative for fever, chills, and weight loss, Eyes: Negative for injury, sp3 pain, redness, and discharge, ENT: Negative for injury, pain, and discharge, Neck: Negative for injury, pain, and swelling, Cardiovascular: Negative for chest pain, palpitations, and edema, Respiratory: Negative for shortness of breath, cough, wheezing, and pleuritic chest pain, Abdomen/GI: Negative for abdominal pain, nausea, vomiting, diarrhea, and constipation, Back: Negative for injury and pain, MS/Extremity: Negative for injury and deformity, Skin: Negative for injury, rash, and discoloration, Psych: Negative for depression, anxiety, suicide ideation, homicidal ideation, and hallucinations, Allergy/Immunology: Negative for hives, rash, and allergies, Endocrine: Negative for neck swelling, polydipsia, polyuria, polyphagia, and marked weight changes, Hematologic/Lymphatic: Negative for swollen nodes, abnormal bleeding, and unusual bruising, 23:01 All other systems are negative, Exam: 23:02 Constitutional: This is a well developed, well nourished patient who is awake, alert, sp3 and in no acute distress. Eyes: Pupils equal round and reactive to light, extra-ocular motions intact. Lids and lashes normal. Conjunctiva and sclera are non-icteric and not injected. Cornea within normal limits. Periorbital areas with no swelling, redness, or edema. ENT: Nares patent. No nasal discharge, no septal abnormalities noted. External auditory canals are clear. Oropharynx with no redness, swelling, or masses, exudates, or evidence of obstruction, uvula midline. Mucous membranes moist. Neck: Trachea midline, no thyromegaly or masses palpated, and no cervical lymphadenopathy. Supple, full range of motion without nuchal rigidity, or vertebral point tenderness. No Meningismus. Chest/axilla: Normal chest wall appearance and motion. Nontender with no deformity. No lesions are appreciated. Cardiovascular: Regular rate and rhythm with a normal S1 and S2. No gallops, murmurs, or rubs. Normal PMI, no JVD. No pulse deficits. Respiratory: Lungs have equal breath sounds bilaterally, clear to auscultation and percussion. No rales, rhonchi or wheezes noted. No increased work of breathing, no retractions or nasal flaring. Abdomen/GI: Soft, non-tender, with normal bowel sounds. No distension or tympany. No guarding or rebound. No evidence of tenderness throughout. Back: No spinal tenderness. No costovertebral tenderness. Full range of motion. Skin: Warm, dry with normal turgor. Normal color with no rashes, no lesions, and no evidence of cellulitis. MS/ Extremity: Pulses equal, no cyanosis. Neurovascular intact. Full, normal range of motion. Psych: Awake, alert, with orientation to person, place and time. Behavior, mood, and affect are within normal limits. 23:02 Neuro: Left lower facial droop with forehead sparing. Patient is able to tolerate secretions. Remainder of neurological exam normal., 01/22 01:08 ECG was reviewed by the Attending Physician. EKG demonstrates normal sinus rhythm with sp3 a right bundle branch block at 86 bpm with nonspecific diffuse ST's ST changes without evidence of acute ischemia. Vital Signs: 01/21 23:05 BP 149 / 96; Pulse 87; Resp 15; Temp 98.1; Pulse Ox 100% ; vc1 23:15 BP 144 / 96; Pulse 89; Resp 18; Pulse Ox 100% ; cp4 23:45 BP 136 / 91; Pulse 84; Resp 18; Pulse Ox 100% ; cp4 01/22 00:15 BP 129 / 89; Pulse 82; Resp 18; Pulse Ox 100% ; cp4 00:52 BP 136 / 97; Pulse 81; Resp 18; Pulse Ox 99% ; cp4 01:15 BP 132 / 90; Pulse 82; Resp 18; Pulse Ox 100% ; cp4 01:45 BP 126 / 93; Pulse 82; Resp 18; Pulse Ox 99% ; cp4 NIH Stroke Scale Scores: 01/21 23:13 NIHSS Score: 1 cp4 MDM: 22:44 Medical Screening Exam initiated sp3 23:02 Data reviewed: vital signs, nurses notes, lab test result(s), EKG, radiologic studies. sp3 ED course: Stroke alert called within 2 minutes of me seeing patient. Patient in CT scan now. Full stroke workup pending. Differential diagnosis includes TIA, CVA, Perez's palsy, among others. Disposition pending workup and patient course.. 01/22 01:01 ED course: Discussed via phone with Dr. Jennifer metcalfbody who has accepted the patient for sp3 facial droop and neurological workup and consult. Patient is out of the window for any intervention. No LVO is present. CT angiograms of the neck and head are normal.. 01/21 22:48 Order name: Basic Metabolic Panel; Complete Time: 00:36 sp3 01/21 22:48 Order name: CBC with Diff; Complete Time: 23:45 sp3 01/21 22:48 Order name: Hepatic Function; Complete Time: 00:36 sp3 01/21 22:48 Order name: High Sensitivity Troponin; Complete Time: 00:36 sp3 01/21 22:48 Order name: Magnesium; Complete Time: 00:36 sp3 01/21 22:48 Order name: Protime (+inr); Complete Time: 23:45 sp3 01/21 22:48 Order name: Ptt, Activated; Complete Time: 23:45 sp3 01/21 23:49 Order name: Glucose, Ancillary Testing; Complete Time: 23:50 EDW[place] 01/22 01:09 Order name: Magnesium [facility] 01/22 01:09 Order name: Phosphorus [facility] 01/22 01:09 Order name: Basic Metabolic Panel [facility] 01/22 01:09 Order name: Basic Metabolic Panel [facility] 01/22 01:09 Order name: CBC with Automated Diff [facility] 01/22 01:09 Order name: CBC with Automated Diff [facility] 01/22 01:09 Order name: Lipid Profile [facility] 01/22 01:09 Order name: Lipid Profile [facility] 01/22 01:09 Order name: Hemoglobin A1c [facility] 01/21 22:48 Order name: CT Head Angio 3 01/21 22:48 Order name: CT Neck Angio 3 01/21 22:48 Order name: CT Stroke Brain w/o Contrast 3 01/21 22:48 Order name: Stroke CXR 1 View [facility] 01/22 01:09 Order name: Echo with Doppler [facility] 01/22 01:09 Order name: Stroke Protocol [facility] 01/22 01:09 Order name: CONS Physician Consult [facility] 01/22 01:09 Order name: Physical Therapy Consult [facility] 01/22 01:09 Order name: Speech Therapy Consult [facility] 01/22 01:09 Order name: Occupational Therapy Consult [facility] 01/21 22:48 Order name: Accucheck; Complete Time: 23:20 3 01/21 22:48 Order name: Cardiac monitoring; Complete Time: 23:20 3 01/21 22:48 Order name: EKG - Nurse/Tech; Complete Time: 23:20 sp3 01/21 22:48 Order name: IV Saline Lock; Complete Time: 23:20 sp3 01/21 22:48 Order name: Labs collected and sent; Complete Time: 23:20 sp3 01/21 22:48 Order name: NPO; Complete Time: 23:20 sp3 01/21 22:48 Order name: O2 Per Protocol; Complete Time: 23:20 sp3 01/21 22:48 Order name: O2 Sat Monitoring; Complete Time: 23:20 sp3 01/21 22:48 Order name: Stroke Swallow Screen; Complete Time: 23:20 sp3 Administered Medications: No medications were administered Point of Care Testing: Blood Glucose: 01/21 22:51 Blood Glucose: 152 mg/dL; cp4 Ranges: Critical Glucose Levels:Adult <50 mg/dl or >400 mg/dl <40 mg/dl or >180 mg/dl Disposition Summary: 01/23/24 01:02 Hospitalization Ordered Notes: Hospitalization Status: Observation sp3 Provider: Prince Flori sp3 Condition: Stable sp3 Problem: new sp3 Symptoms: have improved sp3 Bed/Room Type: Standard sp3 Location: Intensive Care Unit(01/23/24 01:35) [facility] Room Assignment: 4-(01/23/24 01:35) [facility] Diagnosis - Facial droop sp3 Forms: - Medication Reconciliation Form sp3 - SBAR form sp3 - Leadership Thank You Letter sp3 NIH Stroke Scale - NIH Stroke Score Date: 01/22/2024 Time: 23:13 Total Score = 1 10. Dysarthria (speech clarity - read or repeat words) - 0(Normal) 11. Extinction and Inattention (visual/tactile/auditory/spatial/personal) - 0(No abnormality) 1a. Level of Consciousness (LOC) - 0(Alert) 1b. Level of Consciousness (LOC) (Month \T\ Age) - 0(Both) 1c. LOC Commands (Open \T\ Closes Eyes/Lei Maker) - 0(Both) 2. Best Gaze (Lateral Gaze Paresis) - 0(Normal) 3. Visual Field Loss - 0(No visual loss) 4. Facial Palsy - 1(Minor Paralysis) 5a. Left Arm: Motor (10-second hold) - 0(No drift) 5b. Right Arm: Motor (10-second hold) - 0(No drift) 6a. Left Leg: Motor (5-second hold - always test supine) - 0(No drift) 6b. Right Leg: Motor (5-second hold - always test supine) - 0(No drift) 7. Limb Ataxia (finger/nose \T\ heel/alaniz - test with eyes open) - 0(Absent) 8. Sensory Loss (pinprick arms/legs/face) - 0(Normal) 9. Best Language: Aphasia (description/naming/reading) - 0(No aphasia) Initials: cp4 Signatures: Dispatcher [employer] EDKike Espino MD MD sp3 Zoie Roca cp4 Katherine Zabala [facility] Corrections: (The following items were deleted from the chart) 22:48 22:48 BASIC METABOLIC PANEL+C.LAB.BRZ ordered. EDMS EDMS 22:48 22:48 CBC+H.LAB.BRZ ordered. EDMS EDMS 22:48 22:48 HEPATIC FUNCTION+C.LAB.BRZ ordered. EDMS EDMS 22:48 22:48 Troponin High Sensitivity+C.LAB.BRZ ordered. EDMS EDMS 22:48 22:48 MAGNESIUM+C.LAB.BRZ ordered. EDMS EDMS 22:48 22:48 PROTIME (+INR)+COAG.LAB.BRZ ordered. EDMS EDMS 22:48 22:48 PTT, ACTIVATED+COAG.LAB.BRZ ordered. EDMS EDMS 22:49 22:49 Head Angio+CT.RAD.BRZ ordered. EDMS EDMS 22:49 22:49 Neck Angio+CT.RAD.BRZ ordered. EDMS EDMS 22:49 22:49 CT-STROKE BRAIN W/O CONTRAST+CT.RAD.BRZ ordered. EDMS EDMS 22:49 22:49 Chest Single View+RAD.RAD.BRZ ordered. EDMS EDMS 01/22 01:35 01:02 Telemetry/MedSurg (observation) 3 [facility] 01:35 01:02 3 [facility]
--- NOTE | 2024-01-23 01:03 | ER ---
Nurse's Notes [facility] Name: Saroj Yoder Age: 48 yrs Sex: Male : 1975 Arrival Date: 01/22/2024 Time: 22:35 Bed 2 Private MD: Diagnosis: Facial droop Presentation: 01/21 22:44 Chief complaint: Patient states: left sided mouth droop and tingling and numbness to cp4 the left hand/fingers. Last known well time was 1200 01/22/2024. 22:44 Coronavirus screen: Client denies travel out of the [place] in the last 14 days. At this cp4 time, the client does not indicate any symptoms associated with coronavirus-19. Ebola Screen: Patient negative for fever greater than or equal to 101.5 degrees Fahrenheit, and additional compatible Ebola Virus Disease symptoms Patient denies exposure to infectious person. Patient denies travel to an Ebola-affected area in the 21 days before illness onset. No symptoms or risks identified at this time. No acute neurological deficit is noted. Pre-hospital glucose is not applicable to this patient. Initial Sepsis Screen: Does the patient meet any 2 criteria? No. Patient's initial sepsis screen is negative. Does the patient have a suspected source of infection? No. Patient's initial sepsis screen is negative. Risk Assessment: Do you want to hurt yourself or someone else? Patient reports no desire to harm self or others. Onset of symptoms was January 22, 2024 at 12:00. Care prior to arrival: None. 22:44 Method Of Arrival: Ambulatory 4 22:44 Acuity: ELIZABETH 2 cp4 Triage Assessment: 23:10 The onset of the patients symptoms was January 22, 2024 at 12:00. General: Appears in cp4 no apparent distress. comfortable, Behavior is calm, cooperative, appropriate for age. Pain: Denies pain. Neuro: Level of Consciousness is awake, alert, obeys commands, Oriented to person, place, time, situation, Reports left sided mouth droop and tingling/numbness to left hand.. Cardiovascular: Patient's skin is warm and dry. Rhythm is regular. Respiratory: Airway is patent Respiratory effort is even, unlabored. GI: No signs and/or symptoms were reported involving the gastrointestinal system. : No signs and/or symptoms were reported regarding the genitourinary system. Derm: No signs and/or symptoms reported regarding the dermatologic system. Musculoskeletal: No signs and/or symptoms reported regarding the musculoskeletal system. Stroke Activation: Symptom onset > 6 hours Physician: ED Attending; Name: Jose; Notified At: 22:43; Arrived At: 22:44 Physician: Mid-Level Provider; Name: ; Notified At: 22:43; Arrived At: Physician: [not used]; Name: ; Notified At: ; Arrived At: Physician: [not used]; Name: ; Notified At: ; Arrived At: Physician: [not used]; Name: ; Notified At: ; Arrived At: Historical: - Allergies: 23:10 No Known Allergies; cp4 - PMHx: 23:10 Hyperlipidemia; Hypertension; cp4 - Immunization history:: Adult Immunizations up to date. - Infectious Disease History:: Denies. - Social history:: Smoking status: Patient denies any tobacco usage or history of. Screenin:13 [facility] ED Fall Risk Assessment (Adult) History of falling in the last 3 months, cp4 including since admission No falls in past 3 months (0 pts) Confusion or Disorientation No (0 pts) Intoxicated or Sedated No (0 pts) Impaired Gait No (0 pts) Mobility Assist Device Used No (0 pt) Altered Elimination No (0 pt) Score/Fall Risk Level 0 - 2 = Low Risk Oriented to surroundings, Maintained a safe environment, Assessed \T\ reinforced patient's understanding of fall precautions, Hourly rounding (assess needs \T\ fall precautionary measures) done. Abuse screen: Denies threats or abuse. Nutritional screening: No deficits noted. Tuberculosis screening: No symptoms or risk factors identified. Assessment: 23:13 VAN Scoring: Arm Drift: Patients demonstrates NO arm weakness. Patient is VAN Negative. cp4 Visual Disturbance: No visual disturbance noted. Aphasia: No aphasia noted. Neglect: No neglect noted. TNKase (Tenecteplase) Screening: Not Applicable. 23:13 [facility] Swallow Protocol Exclusion Criteria: NPO for medical/surgical reason by provider cp4 order Yes. 01/22 00:33 Reassessment: Patient appears in no apparent distress at this time. Patient and/or cp4 family updated on plan of care and expected duration. Pain level reassessed. Patient is alert, oriented x 3, equal unlabored respirations, skin warm/dry/pink. 01:30 Reassessment: Patient appears in no apparent distress at this time. Patient and/or cp4 family updated on plan of care and expected duration. Pain level reassessed. Patient is alert, oriented x 3, equal unlabored respirations, skin warm/dry/pink. Vital Signs: 01/21 23:05 BP 149 / 96; Pulse 87; Resp 15; Temp 98.1; Pulse Ox 100% ; vc1 23:15 BP 144 / 96; Pulse 89; Resp 18; Pulse Ox 100% ; cp4 23:45 BP 136 / 91; Pulse 84; Resp 18; Pulse Ox 100% ; cp4 01/22 00:15 BP 129 / 89; Pulse 82; Resp 18; Pulse Ox 100% ; cp4 00:52 BP 136 / 97; Pulse 81; Resp 18; Pulse Ox 99% ; cp4 01:15 BP 132 / 90; Pulse 82; Resp 18; Pulse Ox 100% ; cp4 01:45 BP 126 / 93; Pulse 82; Resp 18; Pulse Ox 99% ; cp4 NIH Stroke Scale Scores: 01/21 23:13 NIHSS Score: 1 cp4 ED Course: 22:37 Patient arrived in ED. am2 22:40 Kike Garcia MD is Attending Physician. sp3 22:51 Arm band placed on right wrist. Patient placed in waiting room. cp4 22:51 No provider procedures requiring assistance completed. Inserted saline lock: 20 gauge cp4 in left forearm, using aseptic technique. Blood collected. Flushed with 10 mL NS. Inserted saline lock: 20 gauge in right antecubital area, using aseptic technique. Flushed with 10 mL NS. 23:05 Zoie Roca is Primary Nurse. cp4 23:08 CT Head Angio In Process Unspecified. EDMS 23:10 CT Neck Angio In Process Unspecified. EDMS 23:10 CT Stroke Brain w/o Contrast In Process Unspecified. EDMS 23:10 Triage completed. cp4 23:13 Placed in gown. Bed in low position. Call light in reach. Side rails up X2. cp4 23:16 Stroke CXR 1 View In Process Unspecified. EDMS 01/22 01:02 Prince Ruby MD is Hospitalizing Provider. sp3 02:26 Provided Education on: ADMISSION INFO. dd2 02: Patient admitted, IV remains in place. dd2 Administered Medications: No medications were administered Medication: 01/21 23:13 VIS not applicable for this client. cp4 Point of Care Testing: Blood Glucose: 22:51 Blood Glucose: 152 mg/dL; cp4 Ranges: Outcome: 01/22 01:02 Decision to Hospitalize by Provider. sp3 02: Admitted to ICU accompanied by nurse, room 4, with chart, dd2 : Condition: stable 02: Instructed on the need for admit, 02:27 Patient left the ED. dd2 NIH Stroke Scale - NIH Stroke Score Date: 01/22/2024 Time: 23:13 Total Score = 1 10. Dysarthria (speech clarity - read or repeat words) - 0(Normal) 11. Extinction and Inattention (visual/tactile/auditory/spatial/personal) - 0(No abnormality) 1a. Level of Consciousness (LOC) - 0(Alert) 1b. Level of Consciousness (LOC) (Month \T\ Age) - 0(Both) 1c. LOC Commands (Open \T\ Closes Eyes/[place]) - 0(Both) 2. Best Gaze (Lateral Gaze Paresis) - 0(Normal) 3. Visual Field Loss - 0(No visual loss) 4. Facial Palsy - 1(Minor Paralysis) 5a. Left Arm: Motor (10-second hold) - 0(No drift) 5b. Right Arm: Motor (10-second hold) - 0(No drift) 6a. Left Leg: Motor (5-second hold - always test supine) - 0(No drift) 6b. Right Leg: Motor (5-second hold - always test supine) - 0(No drift) 7. Limb Ataxia (finger/nose \T\ heel/alaniz - test with eyes open) - 0(Absent) 8. Sensory Loss (pinprick arms/legs/face) - 0(Normal) 9. Best Language: Aphasia (description/naming/reading) - 0(No aphasia) Initials: cp4 Signatures: Dispatcher [employer] EDMS Marcela Tidwell am2 Kike Garcia MD MD sp3 Lena Banuelos RN RN 1 Zoie Roca cp4 SILVIA, RITCHIE, RN RN dd2 Corrections: (The following items were deleted from the chart) 01/21 23:23 23:13 Ayr Swallow Protocol Exclusion Criteria: Brief Cognitive Screen What is cp4 your name? Normal, Where are you right now? Normal, What year is it? Normal. Oral Mechanism Examination Facial Symmetry: Normal, Motion: Normal, Lip Closure: Normal, 3 oz Water Swallow Challenge: Pt able to drink all water without stopping, coughing, choking or throat clearing: Result: PASS Notified: Kike Garcia MD cp4
--- NOTE | 2024-01-23 01:29 | P.HP ---
Certification for Inpatient Patient admitted to: Observation With expected LOS: <2 Midnights Practitioner: I am a practitioner with admitting privileges, knowledge of patient current condition, hospital course, and medical plan of care. Services: Services provided to patient in accordance with Admission requirements found in Title 42 Section 412.3 of the Code of Federal Regulations Patient History Date of Service: 01/23/24 Reason for admission: TIA/stroke History of Present Illness: Patient is a 48-year-old male with a known past medical history of uncontrolled type 2 diabetes mellitus, hyperlipidemia, tobacco smoking and alcohol use. He is presenting to the ER for evaluation of an acute onset of left-sided facial droop. 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 Patient is also responding left upper extremity paresthesia. Workup in the ER included a CT head and CTA head and neck, all of which were unremarkable. Patient is being admitted for stroke workup including brain MRI. During my evaluation, he was alert and awake. Answered questions appropriately. His mental status was at bedside. He still has mild facial asymmetry but no motor deficits in all 4 extremities. Allergies No Known Allergies Allergy (Unverified 04/21/18 15:06) Home Medications: Docosahexanoic AC/Epa [Fish Oil 1,000 MG*] 2,000 mg PO BID #120 cap 04/23/18 Metformin HCl 1,000 mg PO BID #60 tablet 04/23/18 gemfibroziL [Lopid*] 600 mg PO BID #60 tab 04/23/18 lisinopriL [Prinivil*] 10 mg PO BEDTIME #30 tab 04/23/18 - Past Medical/Surgical History Diabetic: Yes -: Diabetes mellitus type 2 -: Hypertension -: Hyperlipidemia -: Obesity -: Tobacco abuse -: Alcohol use -: Fatty liver Psychosocial/ Personal History: Patient is . He has 3 children. He works as a fabricator. - Family History Mother -: Diabetes - Social History Alcohol use: Yes CD- Drugs: No Caffeine use: No Physical Examination - Physical Exam General: In no apparent distress, Cooperative, Obese HEENT: Atraumatic, Normocephalic, EOMI Cardiovascular: No edema, Normal pulses, Regular rate/rhythm, Normal S1 S2 Neurological: Normal speech, Other (Facial droop), Abnormal sensation - Studies Laboratory Data (last 24 hrs) 01/22/24 01/22/24 01/22/24 23:50 22:52 22:52 WBC 6.80 Hgb 16.0 Hct 47.1 Plt Count 137 L PT 11.1 INR 0.99 APTT 34.2 Sodium 135 L Potassium 3.7 BUN 18 Creatinine 0.67 L Glucose 166 H Magnesium 2.0 Total Bilirubin 0.5 AST 26 ALT 43 Alkaline Phosphatase 74 Assessment and Plan - Problems (Diagnosis) (1) TIA (transient ischemic attack) Current Visit: Yes Status: Acute (2) Type 2 diabetes mellitus Current Visit: Yes Status: Acute (3) Hypertension Current Visit: Yes Status: Acute (4) Hyperlipidemia Current Visit: Yes Status: Acute (5) Tobacco smoker within last 12 months Current Visit: Yes Status: Acute (6) Alcohol abuse Current Visit: Yes Status: Acute - Plan Assessment This is a 48-year-old male with uncontrolled type 2 diabetes mellitus, hypertension and hyperlipidemia. He is being admitted for stroke workup after he presented with an acute onset of left-sided facial droop and left upper extremity paresthesia. Patient is outside the window for tenecteplase. Workup in the ER included CT head and CTA head and neck all of which were unremarkable. He is being admitted for completion of stroke workup. TIA/stroke Type 2 diabetes mellitus Hypertension Hyperlipidemia Tobacco smoking Alcohol use Plan: Will admit under observation with telemetry Continue patient on aspirin and atorvastatin Brain MRI has been ordered along with a 2D echo Follow hemoglobin A1c and lipid panel Neurology has been consulted PT/OT/LINE INSPECTOR before discharge Patient is full code - Advance Directives Does patient have a Living Will: No Does patient have a Durable POA for Healthcare: No
[2024-01-23] MEDS: NA CHLORIDE 0.9% 1,000 ML IV SCH (02:00)
[2024-01-23 03:05] VITALS: BMI 30.7
[2024-01-23 06:01] LABS: Phosphorus 4.1 mg/dL (2.5-4.9)
[2024-01-23 06:02] LABS: Magnesium 2.1 mg/dL (1.6-2.4)
--- NOTE | 2024-01-23 06:50 | P.PN ---
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 Prior to admission last known normal ~noon 01/21. CT brain negative for any acute findings. CTA head/neck unremarkable MRI brain ordered to further eval, r/o CVA; unable to be done over the weekend Echo ordered to eval EF / stenosis Dr. Schuler, neuro consulted Monitor on tele, vitals q4h PT/OT/ST eval continue IV fluids start asa 81 mg, statin Hypertriglyceridemia Hx pancreatitis secondary to hyperTG Hyperlipidemia triglycerides 774 on admission. Has history of pancreatitis secondary to hyperTG back in 2019 reports not taking all of his home meds as prescribed, some due to side effects (pain) and cost confirm home meds, restart as appropriate Start statin NIDDM2 accu-cheks, SSI Hypertension confirm home meds, restart as appropriate Tobacco/Alcohol use cessation advised Code: Full Dispo: Home Pending possible MRI, neuro recs Time Spent Managing Pts Care (In Minutes): 41
--- NOTE | 2024-01-23 07:14 | RAD REPORT ---
CLINICAL HISTORY: stroke alert. COMPARISON: None. TECHNIQUE: Single view AP chest radiograph(s). FINDINGS: Slightly low lung volumes. No pulmonary infiltrate or edema identified. No pleural effusion. No pne umothorax. Nonenlarged cardiomediastinal silhouette. No significant osseous abnormality. IMPRESSION: No acute cardiopulmonary abnormality identified by radiograph. Electronically signed by: Yuridia Lindsey MD 01/22/2024 11:41 PM TREATING INSPECTOR Due to temporary technical issues with the [employer] reporting system, reports are being tess d by the in-house radiologist without review as a courtesy to ensure prompt reporting the interpreting radiologist is fully responsible for the content of the report. Transcribed Date/Time: 01/23/2024 7:14 AM
[2024-01-23 07:33] VITALS: O2SAT 99
[2024-01-23 07:39] LABS: HDL Cholesterol 30 mg/dL (40-60)
[2024-01-23 07:49] LABS: LDL, Direct 94 mg/dL (100-129)
[2024-01-23] MEDS: ASPIRIN EC 81 MG TAB PO SCH (09:37)
[2024-01-23] MEDS: FLU (Fluarix Triv) TS24-25(6MOS UP)/PF 45 MCG/0.5 ML Syringe IM ONE (09:40)
[2024-01-23 11:17] VITALS: BP 127/85; TEMP 98.2
[2024-01-23] MEDS ORDERED: ATORVASTATIN 20 MG TAB PO SCH (21:00)
--- NOTE | 2024-01-24 06:25 | P.DS ---
Admission Date: 01/23/24 Discharge Date: 01/23/24 Disposition: ROUTINE DISCHARGE Discharge Condition: GOOD Reason for Admission: TIA/stroke Consultations: Neurology - Dr. Schuler Brief History of Present Illness: 48yo M, PMJ: uncontrolled type 2 diabetes mellitus, hyperlipidemia, tobacco smoking and alcohol use. He is presenting to the ER for evaluation of an acute onset of left-sided facial droop. The onset of symptoms was [address] [employer]. Patient is also responding left upper extremity paresthesia. Workup in the ER included a CT head and CTA head and neck, all of which were unremarkable. Patient is being admitted for stroke workup including brain MRI. During my evaluation, he was alert and awake. Answered questions appropriately. His mental status was at bedside. He still has mild facial asymmetry but no motor deficits in all 4 extremities. 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 In the ED, CT head, CTA head, CTA neck, and chest xray were all negative for any acute findings. Due to timing of onset of symptoms, it was determined he was outside of window for TNKase. Labwork on admission was unremarkable. Vitals remained stable throughout hospitalization. MRI brain and echocardiogram were ordered to further evaluate, however unable to do over the weekend. Discussed with patient, given his improvement of symptoms, risk of CVA, and management would remain same with or without MRI Patient was in agreement on discharge home to follow up with PCP and Neurology. Discussed whether TIA vs CVA (stroke), management would be the same. MRI would confirm stroke vs TIA, and can be done as outpatient. He was able to ambulate and swallow without issues on day of discharge. Patient was feeling better close to his normal self, vitals stable, and deemed stable for discharge. Recommend monitoring blood pressure over next few days. Hold off on restarting lisinopril until systolic blood pressure > 160 Patient reported muscle pains/stiffness from his simvastatin. He reported not trying other statins in the past. He has previously been prescribed statin, fibrates, and fish oil. Discussed taking statin + fibrate does increase risk of muscle toxicity / side effects. Given his hypertryglyceridemia and now CVA vs TIA, he should take both. Will send atorvastatin at 40mg to try and see if he can tolerate. Follow up with PCP if need to try a different statin. continue with low fat diet avoid alcohol Medications: Aspirin 81mg indefinitely Clopidogrel (Plavix) 75mg daily for 1 month Atorvastatin 40mg once daily indefinitely Fenofibrate 145mg once daily indefinitely Follow up: PCP 3-5 days Neurology 3-4 weeks Please call to schedule / confirm appointments Physical Exam: GEN: Alert, NAD HEENT: Normal conjunctiva, sclera anicteric, CV: Regular rate and rhythm, no edema Pulm: Nonlabored respirations on room air, clear bilaterally ABD: soft, nontender, nondistended Neuro: Asymmetric smile with left facial droop, left eyelid weakness Vital Signs/Physical Exam: Temp Pulse Resp BP Pulse Ox 98.2 F 75 18 127/85 96 01/23/24 11:16 01/23/24 11:16 01/23/24 11:16 01/23/24 11:16 01/23/24 11:16 Laboratory Data at Discharge: WBC 6.80 thou/uL (4.3-10.9) 01/22/24 22:52 Hgb 16.0 g/dL (13.6-17.9) 01/22/24 22:52 Hct 47.1 % (39.6-49.0) 01/22/24 22:52 Plt Count 137 thou/uL (152-406) L 01/22/24 22:52 PT 11.1 SECONDS (9.4-12.5) 01/22/24 22:52 INR 0.99 01/22/24 22:52 APTT 34.2 SECONDS (24.3-36.9) 01/22/24 22:52 Sodium 135 mEq/L (136-145) L 01/22/24 23:50 Potassium 3.7 mEq/L (3.5-5.1) 01/22/24 23:50 BUN 18 mg/dL (7-18) 01/22/24 23:50 Creatinine 0.67 mg/dL (0.70-1.30) L 01/22/24 23:50 Glucose 166 mg/dL (74-106) H 01/22/24 23:50 Phosphorus 4.1 mg/dL (2.5-4.9) 01/23/24 04:58 Magnesium 2.1 mg/dL (1.6-2.4) 01/23/24 04:58 Total Bilirubin 0.5 mg/dL (0.2-1.0) 01/22/24 23:50 AST 26 U/L (15-37) 01/22/24 23:50 ALT 43 U/L (16-61) 01/22/24 23:50 Alkaline Phosphatase 74 U/L (45-117) 01/22/24 23:50 Triglycerides 774 mg/dL (<150) H 01/23/24 04:58 Cholesterol 239 mg/dL (<200) H 01/23/24 04:58 LDL Cholesterol Direct 94 mg/dL (100-129) L 01/23/24 04:58 HDL Cholesterol 30 mg/dL (40-60) L 01/23/24 04:58 Cholesterol/HDL Ratio 7.97 01/23/24 04:58 Home Medications: Docosahexanoic AC/Epa [Fish Oil 1,000 MG*] 2,000 mg PO BID #120 cap 04/23/18 Metformin HCl 1,000 mg PO BID #60 tablet 04/23/18 Aspirin [Aspirin EC 81 MG] 81 mg PO DAILY 90 Days #90 tab 01/23/24 Atorvastatin Calcium 40 mg PO BEDTIME 30 Days #30 tab 01/23/24 Clopidogrel Bisulfate [Plavix] 75 mg PO DAILY 30 Days #30 tab 01/23/24 Fenofibrate Nanocrystallized [Fenofibrate] 145 mg PO DAILY 30 Days #30 tab 01/23/24 New Medications: Aspirin [Aspirin EC 81 MG] 81 mg PO DAILY 90 Days #90 tab Atorvastatin Calcium 40 mg PO BEDTIME 30 Days #30 tab Fenofibrate Nanocrystallized [Fenofibrate] 145 mg PO DAILY 30 Days #30 tab Clopidogrel Bisulfate [Plavix] 75 mg PO DAILY 30 Days #30 tab Physician Discharge Instructions: PROBLEM: TIA vs.CVA GOAL: Clear understanding of disease process Diet: Heart Healthy Diabetic Activity: As Tolerated DME DME: Date Ordered: Name of Company: [employer] Services Needed: Name of Company: Date or Referral: IMMUNIZATION Influenza Vaccine Indicated: Yes Influenza Vaccine Given: Date Given: Pneumonia Vaccine Indicated: No Pneumonia Vaccine Given: Date Given: INSTRUCTIONS: Physician discharge instructions: Patient presented to the ED with left-sided facial droop, left arm/hand paresthesia. In the ED, CT head, CTA head, CTA neck, and chest xray were all negative for any acute findings. Due to timing of onset of symptoms, it was determined he was outside of window for TNKase. Labwork on admission was unremarkable. Vitals remained stable throughout hospitalization. MRI brain and echocardiogram were ordered to further evaluate, however unable to do over the weekend. Discussed with patient, given his improvement of symptoms, risk of CVA, and management would remain same with or without MRI Patient was in agreement on discharge home to follow up with PCP and Neurology. Discussed whether TIA vs CVA (stroke), management would be the same. MRI would confirm stroke vs TIA, and can be done as outpatient. He was able to ambulate and swallow without issues on day of discharge. Patient was feeling better close to his normal self, vitals stable, and deemed stable for discharge. Recommend monitoring blood pressure over next few days. Hold off on restarting lisinopril until systolic blood pressure > 160 Patient reported muscle pains/stiffness from his simvastatin. He reported not trying other statins in the past. He has previously been prescribed statin, fibrates, and fish oil. Discussed taking statin + fibrate does increase risk of muscle toxicity / side effects. Given his hypertryglyceridemia and now CVA vs TIA, he should take both. Will send atorvastatin at 40mg to try and see if he can tolerate. Follow up with PCP if need to try a different statin. continue with low fat diet avoid alcohol Medications: Aspirin 81mg indefinitely Clopidogrel (Plavix) 75mg daily for 1 month Atorvastatin 40mg once daily indefinitely Fenofibrate 145mg once daily indefinitely Follow up: PCP 3-5 days Neurology 3-4 weeks Please call to schedule / confirm appointments Followup: NONE,NONE [Primary Care Provider] - Time spent managing pt's care (in minutes): 45
== END 2024-01-23 15:15 | disposition home or self-care (01) ==
LOC: ER 22:35 → ERHOLD 01-23 01:03 → 3RD-ICU 01-23 01:40
PROVIDERS: ADMIT Internal Medicine; ATTEND Hospitalist
DX: G45.9 Transient cerebral ischemic attack, unspecified (principal); E11.9 Type 2 diabetes mellitus without complications; I10 Essential (primary) hypertension; E78.5 Hyperlipidemia, unspecified; F17.210 Nicotine dependence, cigarettes, uncomplicated; F10.10 Alcohol abuse, uncomplicated; R20.2 Paresthesia of skin; R29.810 Facial weakness
CPT/HCPCS: 36415; 70450; 70496; 70498; 71045; 80048; 80061; 80076; 82947; 83036; 83735; 84100; 84484; 85025; 85610; 85730; 97161; G0378; J7030; Q9967